=== PATIENT | female | born 1985 | race Two or more races ===

== ENCOUNTER 2018-03-15 13:47 | Emergency (ER) | payer OTHER ==
[~2018-03-15] VITALS: Ht 162.6 cm; Wt 79.4 kg
[2018-03-15 13:53] VITALS: Ht 162.6 cm; Wt 79.4 kg
[2018-03-15 15:54] VITALS: BP 116/76
== END 2018-03-15 15:54 | disposition home or self-care (01) ==
LOC: ED 13:47
DX: S63.610A Unspecified sprain of right index finger, initial encounter (principal); M20.011 Mallet finger of right finger(s); S00.83XA Contusion of other part of head, initial encounter; S00.512A Abrasion of oral cavity, initial encounter; Y08.89XA Assault by other specified means, initial encounter; Y93.89 Activity, other specified; Y92.89 Other specified places as the place of occurrence of the external cause; Y99.8 Other external cause status
CPT/HCPCS: 99406; A4570

== ENCOUNTER 2019-08-04 02:22 | Emergency (ER) | payer OTHER ==
[~2019-08-04] VITALS: Ht 162.6 cm; Wt 83.1 kg
[2019-08-04 03:51] VITALS: BP 120/78
== END 2019-08-04 03:51 | disposition home or self-care (01) ==
LOC: ED 02:22
DX: J20.9 Acute bronchitis, unspecified (principal); G43.909 Migraine, unspecified, not intractable, without status migrainosus